=== PATIENT | male | born 1940 | race Caucasian/White ===

== ENCOUNTER 2020-02-27 21:36 | Emergency (ER) | payer MEDICARE ==
[~2020-02-27] VITALS: Ht 177.8 cm; Wt 69.0 kg
[2020-02-27] MEDS ORDERED: ZOLOFT50 M1 PO (22:10)
[2020-02-27] MEDS ORDERED: LIPITOR10 MG PO (22:10)
[2020-02-27 22:11] LABS: URINE BILIRUBIN NEGATIVE (Negative); URINE BLOOD 3+ (Negative); URINE CLARITY CLEAR; URINE COLOR YELLOW; URINE GLUCOSE-RANDOM NEGATIVE (Negative); URINE KETONES NEGATIVE (Negative); URINE LEUKOCYTES NEGATIVE (Negative); URINE NITRITE NEGATIVE (Negative); URINE PROTEIN NEGATIVE (Negative); URINE UROBILINOGEN 0.2 E.U./dl (0.2-1.0)
[2020-02-27] MEDS ORDERED: NAMENDA 5 MG TAB5 M1 PO (22:11)
[2020-02-27 22:14] LABS: HEMATOCRIT 35.1 % (42.0-52.0); HEMOGLOBIN 12.6 gm/dL (14.0-18.0); MCH 35.1 pg (26.0-34.0); MCV 97.3 fL (80.0-100.0); RBC 3.61 mil/uL (4.50-6.00); RDW-CV 14.2 % (10.5-14.5); WBC 10.4 thou/uL (4.0-11.0)
[2020-02-27 22:21] LABS: BACTERIA None Seen /HPF (None Seen); CASTS None Seen /LPF (None Seen); CRYSTALS None Seen /LPF (None Seen); SQUAMOUS 0-3 Few /LPF (0-3); URINE RBC 3-10 Few /HPF (0-2); URINE WBC None Seen /HPF (0-5)
[2020-02-27 22:22] LABS: AMP/METHAMP Negative (Negative); BARBITURATES Negative (Negative); BENZODIAZEPINES Negative (Negative); COCAINE Negative (Negative); METHADONE Negative (Negative); OPIATES Negative (Negative); PCP Negative (Negative); THC Negative (Negative)
[2020-02-27 22:30] LABS: CALCIUM 8.9 mg/dL (8.5-10.1); CREATININE 1.5 mg/dL (0.6-1.3)
[2020-02-27 22:32] LABS: SALICYLATE < 2.8 mg/dL (2.8-20.0)
[2020-02-27 22:33] LABS: ACETAMINOPHEN < 2 ug/mL (10-30); ALCOHOL < 10 mg/dL (<10)
[2020-02-27 22:34] LABS: ALBUMIN 4.1 g/dL (3.4-5.0); TOTAL BILIRUBIN 0.5 mg/dL (<0.1-1.0); TOTAL PROTEIN 7.1 g/dL (6.4-8.2)
[2020-02-28 01:57] VITALS: BP 144/72
== END 2020-02-28 01:58 ==
LOC: M.ERS 21:36
PROVIDERS: Personal Emergency Response Attendant
DX: F03.91 Unspecified dementia, unspecified severity, with behavioral disturbance (principal); T43.8X5A Adverse effect of other psychotropic drugs, initial encounter; E78.00 Pure hypercholesterolemia, unspecified; Y92.89 Other specified places as the place of occurrence of the external cause